=== PATIENT | male | born 1955 | race African-American/Black ===

== ENCOUNTER 2018-08-06 20:02 | Emergency (ER) | payer SELFPAY ==
[~2018-08-06] VITALS: Ht 190.5 cm; Wt 90.0 kg
[2018-08-06] MEDS ORDERED: LORAZEPAM 1MG TABLET PO ONE (23:00)
[2018-08-07 00:21] VITALS: BP 185/101
== END 2018-08-07 00:22 | disposition home or self-care (01) ==
LOC: ER 21:42
DX: I16.0 Hypertensive urgency (principal); I10 Essential (primary) hypertension; F17.200 Nicotine dependence, unspecified, uncomplicated; Z88.0 Allergy status to penicillin
CPT/HCPCS: 93005; 99283; 99406